=== PATIENT | female | born 1950 | race Caucasian/White ===

== ENCOUNTER 2022-10-08 12:09 | Outpatient (CLI) | payer MEDICARE, SELFPAY ==
--- NOTE | ~2022-10-08 | XR_ITS ---
Clinical Indication: Symptoms involving the circulatory and respiratory system PA and lateral views of the chest: Comparison: 11/12/2017 Findings: Minimal bilateral pleural effusions are noted. Cardiomediastinal silhouette is within norm al limits. Bones and soft tissues are unremarkable. Impression: Minimal bilateral pleural effusions. Reviewed, dictated and finalized at location . Impression: Minimal bilateral pleural effusions.
== END 2022-10-08 12:10 | disposition home or self-care (01) ==
PROVIDERS: PCP Family Medicine; Visit Provider Nurse Practitioner Family
DX: J90 Pleural effusion, not elsewhere classified (principal)
CPT/HCPCS: 71046

== ENCOUNTER 2022-10-28 09:22 | Outpatient (CLI) | payer MEDICARE, SELFPAY ==
--- NOTE | ~2022-10-28 | CT_ITS ---
CT Scan of the Chest without Contrast: Clinical Indication: Abnormal chest x-ray Technique: Contiguous sections were acquired throughout the chest without intravenous contrast. Dose reduction technique was used on this scan by utilizing automated exposure control and iterative recon struction technique. The dose-length product (DLP) was 630.21 mGy-cm. Findings: There is no evidence of any significant mediastinal, hilar or axillary lymphadenopathy. There are mil d coronary artery calcifications. No pericardial effusion. Minimal right pleural effusion present. No left pleural effusion. There is linear bibasilar scarring, right worse than left. No suspicious pulmonary nodule. Images through the upper abdomen reveal no abnormalities. Impression: Minimal right pleural effusion. Linear bibasilar scarring, right worse than left. Reviewed, dictated and finalized at [facility]. Impression: Minimal right pleural effusion. Linear bibasilar scarring, right worse than left.
== END 2022-10-28 09:23 ==
LOC: GOSHIMG 09:23
PROVIDERS: PCP Nurse Practitioner Family
DX: J96.01 Acute respiratory failure with hypoxia (principal); J90 Pleural effusion, not elsewhere classified; J98.4 Other disorders of lung
CPT/HCPCS: 71250

== ENCOUNTER 2023-03-09 10:02 | Inpatient (IN) | payer MEDICARE, SELFPAY ==
[2023-03-09] VITALS (29 sets, daily range): BP systolic 138–176; BP diastolic 78–156; PULSE 94–126; RESP 14–31; TEMP 36.4–38.2; O2SAT 88–100; BMI 34.9
--- NOTE | ~2023-03-09 | MR_ITS ---
MRI of the brain Clinical History: Altered mental status, history of meningioma Technique: Axial and sagittal T1-weighted images were acquired. These were followed by axial T2-weigh lilibeth, diffusion weighted, gradient, and FLAIR images. Following intravenous administration of 18 cc Mu ltiHance gadolinium, T1-weighted fat-sat imaging was performed in the axial, coronal, and sagittal pl anes. COMPARISON: 11/12/2017 Findings: There is no acute infarct or intracranial hemorrhage. There is a probable 4 mm enhancing me ningioma in the anteroinferior left renal fossa. No other abnormal 2 possible adjacent tiny meningiom as near the vertex (sagittal postcontrast image 15). No other mass lesion identified. There is mild to moderate chronic microvascular ischemic change in the periventricular white matter. There is probably post operative hyperintense FLAIR signal in the right temporoparietal region with o verlying craniotomy change. Ventricles and subarachnoid spaces are otherwise unremarkable. Orbits are unremarkable. Paranasal sin uses and mastoid air cells are clear. Major intracranial flow voids appear intact. Sagittal midline structures are intact. No other abnormal postcontrast enhancement identified. IMPRESSION: Probable subcentimeter meningiomas, as detailed above. Postoperative change at the right temporoparietal region. Mild to moderate chronic microvascular ischemic changes. Reviewed, dictated and finalized at location .
--- NOTE | ~2023-03-09 | CT_ITS ---
EXAMINATION: CT brain wo con DATE: 03/09/2023 11:56 INDICATION: Altered mental status TECHNIQUE: Computed tomography (CT) of the head was performed without intravenous contrast. Sagittal and coronal reconstructions were performed. The mA was adjusted according to patient size. Iterative reconstruction technique was employed. The dose-length product was 605.33 mGy-cm. COMPARISON: head CT dated 07/14/2017 FINDINGS: Again seen is a small region of chronic encephalomalacia the right frontoparietal region with stable appearance of an overlying craniotomy. There is mild scattered white matter hypoattenuation consisten t with chronic small vessel ischemic disease. No acute intracranial hemorrhage, acute infarction or abnormal extra axial fluid collection. Symmetric prominence of the sulci consistent with mild age-blair ropriate diffuse cerebral volume loss. Ventricles are normal and symmetric. Unchanged prominent left choroid fissure cyst. No mass/mass effect. Changes of bilateral intraocular lens replacement. The orb its, paranasal sinuses and mastoid air cells are normal. IMPRESSION: 1. No acute intracranial process. 2. Small region of chronic encephalomalacia in the right frontoparietal region with overlying craniot leo. 3. Age-related changes including mild diffuse volume loss and mild scattered white matter hypoattenua tion consistent with chronic small vessel ischemic disease. Reviewed, dictated and finalized at location A. IMPRESSION: 1. No acute intracranial process. 2. Small region of chronic encephalomalacia in the right frontoparietal region with overlying craniotomy. 3. Age-related changes including mild diffuse volume loss and mild scattered wh ite matter hypoattenuation consistent with chronic small vessel ischemic diseas e.
--- NOTE | ~2023-03-09 | XR_ITS ---
Portable chest x-ray Comparison: 10/08/2022 Clinical History: Fever Findings: Lungs are clear, without focal consolidation or pleural effusion. Cardiomediastinal silho uette is stable. Bones and soft tissues are unremarkable. Impression: Normal chest. Reviewed, dictated and finalized at [facility]. Impression: Normal chest.
--- NOTE | ~2023-03-09 | CT_ITS ---
EXAMINATION: CT abdomen pelvis w con DATE: 03/09/2023 12:46 INDICATION: Urinary frequency. Altered mental status. TECHNIQUE: Computed tomography (CT) of the abdomen and pelvis was performed with 100 mL Omnipaque-350 intravenous contrast. Automated exposure control and iterative reconstruction technique were employe d. The dose-length product was 1153.39 mGy-cm. COMPARISON: None FINDINGS: Mild atelectasis at the bilateral lung bases. Heart size is normal. Atherosclerotic coronary artery c alcific location. Dense mitral annular calcification. No pericardial or pleural effusion. Patulous di stal esophagus. Liver, gallbladder, spleen, pancreas, bilateral adrenal glands and kidneys are normal . Bladder is normal. The uterus is not identified and has likely been surgically resected. Bowels are unremarkable with no wall thickening or obstruction. The appendix is not visualized. No pericecal in flammatory change to suggest acute appendicitis. Tiny fat-containing umbilical hernia and small fat-c ontaining infraumbilical ventral hernia. No free intraperitoneal gas or fluid. No pathologically enla rged abdominal or pelvic lymphadenopathy. Mild lumbar spondylosis with severe facet osteoarthritis bi laterally at L5-S1. IMPRESSION: 1. No acute intra-abdominal/pelvic process. 2. Fat-containing small infraumbilical and tiny umbilical hernias. 3. Patulous distal esophagus likely related to esophageal dysmotility as described on a couple prior esophagram studies. Reviewed, dictated and finalized at location A. IMPRESSION: 1. No acute intra-abdominal/pelvic process. 2. Fat-containing small infraumbilical and tiny umbilical hernias. 3. Patulous distal esophagus likely related to esophageal dysmotility as descri bed on a couple prior esophagram studies.
--- NOTE | 2023-03-09 10:10 | ECG_ITS ---
Measurements Intervals [place] Rate: 118 P: 53 VT: 140 QRS: -8 QRSD: 126 T: 21 QT: 322 QTc: 452 Interpretive Statements SINUS TACHYCARDIA RIGHT BUNDLE BRANCH BLOCK CONSIDER INFERIOR INFARCT, AGE INDETERMINATE BASELINE ARTIFACT- I, II, III, AVR, AVL, AVF ABNORMAL ECG COMPARED TO ECG 01/16/2019 14:46:38 SINUS TACHYCARDIA NOW PRESENT Electronically Signed On 03-09-2023 11:12:53 CDT by Chuy Witt D.O.
[2023-03-09 10:55] LABS: Basophils Absolute Auto 0.1 K/mm3 (0.0-0.1); Basophils Percent Auto 1.1 % (0.2-1.2); Eosinophils Percent Auto 0.6 % (0-4.4); Hematocrit 27.8 % (37.0-47.0); Hemoglobin 9.5 g/dL (12.0-15.0); Immature Granulocyte Absolute 0.03 K/mm3 (0.00-0.031); Immature Granulocyte Percent A 0.5 % (0-0.5); Lymphocytes Absolute Auto 0.99 K/mm3 (0.9-3.2); Lymphocytes Percent Auto 15.8 % (18.3-44.2); Mean Corpuscular HGB Conc 34.2 g/dl (32-36); Mean Corpuscular Hemoglobin 29.9 pg (26-34); Mean Corpuscular Volume 87.4 fl (80-100); Mean Platelet Volume 8.3 fl (7.4-10.4); Monocytes Absolute Auto 0.5 K/mm3 (0.1-0.6); Monocytes Percent Auto 7.5 % (2.6-8.5); Neutrophils Absolute Auto 4.7 K/mm3 (1.3-6.7); Neutrophils Percent Auto 74.5 % (45.5-73.1); Platelet Count Result 323 k/mm3 (150-375); Red Blood Count 3.18 M/mm3 (4.2-5.4); Red Cell Distribution Width 13.1 % (11.5-14.5); White Blood Count 6.3 K/mm3 (4.5-10.0)
[2023-03-09 11:02] LABS: Appearance Urine Clear (Clear); Bacteria Urine None Seen /hpf; Bilirubin Urine Negative (Negative); Color Urine Yellow (Yellow); Glucose Urine UA Negative (Negative); Ketones Urine Trace mg/dL (Negative); Leukocyte Esterase Ur Negative LEU/UL (Negative); Nitrate Urine Negative (Negative); Protein Urine 1+ mg/dL (Negative); Specific Grav Ur 1.018 (1.001-1.035); Squamous Epithelial Cell Urine None seen /hpf (Few); Urobilinogen Urine 0.2 mg/dL (<2.0); WBC Urine 0-5 /hpf; pH Urine 7.5 (5.0-9.0)
--- NOTE | 2023-03-09 11:06 | ED.AMS ---
HPI - Altered Mental Status General Chief Complaint: Altered Mental Status Stated Complaint: AMS Time Seen by Provider: 03/09/23 10:14 History of Present Illness HPI narrative: This is a 72-year-old female, with past history of hypertension, hypothyroidism and history of pneumonia earlier this year, who is brought to the emergency department by family for progressive confusion. The patient's daughter, who is at bedside notes over the past 2 weeks the patient has become progressively more confused, forgetting her medications, events as recently as eating and her current location. She also states the patient has been coughing, with production of yellow to green sputum without blood. The patient complains of a throbbing headache, rated 5/10 but has no other acute complaints. Related Data Home Medications Medication Instructions Recorded Confirmed albuterol sulfate 90 mcg/actuation 2 inh inhalation PRN PRN Shortness 03/09/23 03/09/23 aerosol inhaler Of Breath Or Wheezing atorvastatin 20 mg tablet 20 mg PO DAILY 03/09/23 03/09/23 benztropine 0.5 mg tablet 0.5 mg PO DAILY 03/09/23 03/09/23 carvedilol 6.25 mg tablet 6.25 mg PO Q12H 03/09/23 03/09/23 clonazepam 0.5 mg tablet 0.5 mg PO Q12H 03/09/23 03/09/23 hydrochlorothiazide 12.5 mg tablet 12.5 mg PO DAILY 03/09/23 03/09/23 levetiracetam 500 mg tablet 1,000 mg PO Q12H 03/09/23 03/09/23 levothyroxine 25 mcg tablet 25 mcg PO DAILY 03/09/23 03/09/23 lisinopril 20 mg tablet 20 mg PO DAILY 03/09/23 03/09/23 montelukast 10 mg tablet 10 mg PO HS 03/09/23 03/09/23 pregabalin 100 mg capsule 100 mg PO Q8H 03/09/23 03/09/23 risperidone 1 mg tablet 1 mg PO HS 03/09/23 03/09/23 sertraline 25 mg tablet 25 mg PO DAILY 03/09/23 03/09/23 sumatriptan succinate 100 mg tablet 100 mg PO DAILY PRN migrane 03/09/23 03/09/23 trazodone 50 mg tablet 50 mg PO HS 03/09/23 03/09/23 Allergies Allergy/AdvReac Type Severity Reaction Status Date / Time NSAIDS (Non-Steroidal Allergy Intermediate Dyspnea / Verified 03/09/23 16:12 Anti-Inflamma SOB amoxicillin Allergy Unknown Unknown Verified 03/09/23 16:12 ibuprofen Allergy Unknown Unknown Verified 03/09/23 16:12 meperidine Allergy Unknown Unknown Verified 03/09/23 16:12 Penicillins Allergy Unknown Unknown Verified 03/09/23 16:12 Sulfa (Sulfonamide Allergy Unknown Itching Verified 03/09/23 16:12 Antibiotics) MEPERIDINE HCL AdvReac Severe hypotension Uncoded 03/09/23 16:12 Review of Systems Review of Systems: CONSTITUTIONAL: Denies fever, chills, or sweats. CARDIOVASCULAR: Denies chest pain, palpitations, or edema. RESPIRATORY: Denies cough or dyspnea. GASTROINTESTINAL: Denies abdominal pain, nausea, vomiting, or diarrhea. GENITOURINARY: Denies dysuria or hematuria. SKIN: Denies rash or itching. MUSCULOSKELETAL: Denies back pain, joint pain, or myalgia. NEUROLOGIC: Throbbing headache denies numbness, dizziness, or weakness. PSYCHIATRIC: Denies anxiety or depression. [facility] Past Medical History Medical History (Updated 03/09/23 @ 18:16 by Daisy Woods PA-C) Asthma Benign meningioma Status post resection and gamma knife. Bipolar disorder Coronary artery disease Poorly documented but reported history of cardiac catheterization with stents. Depression with anxiety Focal seizures Gastroesophageal reflux disease Hyperlipidemia Hypertension Hypothyroidism Kidney stones Migraine headache Mitral valve prolapse Surgical History Surgical History (Updated 03/09/23 @ 18:12 by Daisy Woods PA-C) History of cardiac catheterization History of hysterectomy History of mandibular surgery TMJ surgery. History of resection of meningioma History of surgical removal of ganglion cyst Status post thoracostomy tube placement Family History Family History Sibling Patient's sister is in good health Hypertension Mother Family history of Alzheimer's disease, Onset Age: 87 Hypertension
[2023-03-09 11:08] LABS: Add Urine Microscopic? YES
[2023-03-09 11:10] LABS: Alanine Aminotransferase 18 U/L (6-35); Albumin Level 3.6 g/dL (3.5-5.1); Alkaline Phosphatase 93 U/L (38-126); Anion Gap 8 mmol/L (8-16); Aspartate Amino Transferase 25 U/L (14-36); Bilirubin,Total 0.5 mg/dL (0.2-1.3); Blood Urea Nitrogen 13 mg/dL (7-17); CRP 0.7 mg/dL (<1.0); Calcium 9.4 mg/dL (8.4-10.2); Carbon Dioxide 22 mmol/L (22-30); Chloride 96 mmol/L (98-107); Estimated CRCL calculation 70 ml/min; Estimated Glomerular Filt Rate > 60; Glucose 139 mg/dL (65-110); Sodium 126 mmol/L (137-145)
[2023-03-09 11:20] LABS: Prothrombin Time 13.3 Seconds (11.1-14.7)
[2023-03-09 11:21] LABS: Partial Thromboplastin Time 26.9 SECONDS (22.3-36.8)
[2023-03-09] MEDS: AZITHROMYCIN 500 MG/NS 250 ML 500 MG/250 ML BAG 250 MG IVPB (12:04)
[2023-03-09] MEDS: SODIUM CHLORIDE 0.9% IV 1,000 ML 999 ML IV CONT (12:04)
[2023-03-09 12:27] LABS: Acetaminophen < 10 ug/mL (10-30); Ethanol < 10 mg/dL (<10); Salicylate < 1.0 mg/dL (2-20)
[2023-03-09 12:41] LABS: Influenza A QL RT-PCR Negative (Negative); Influenza B QL RT-PCR Negative (Negative); SARS-CoV-2 RNA PCR Negative (Negative)
[2023-03-09] MEDS: SODIUM CHLORIDE 0.9% IV 1,000 ML 125 ML IV CONT ×2 (13:55→21:53)
--- NOTE | 2023-03-09 16:10 | ADMGEN ---
This patient, Lisa Vicente, was admitted to [facility] Surg Room 307-01. Patient/family oriented to hospital policies and general routines including ID bracelet, bed and alarms, visiting hours, pain management, procedures, bathroom and other care routines, personal items, smoking policy, room service/diet, and visiting hours. Information on how to activate the Rapid Response Team has been discussed. Patient/Family are encouraged to report perceived risks to care and to ask questions if they do not understand what they are told or what they should do.
[2023-03-09] MEDS: ACETAMINOPHEN 325 MG TABLET 650 MG PO (17:37)
--- NOTE | 2023-03-09 18:03 | PM.IMHP ---
H&P: HPI History of Present Illness Date/Time: 03/09/23 17:00 Chief Complaint: Altered mental status. Narrative: This is a 9-year-old female smoker with history of migraines, focal seizures, multiple benign meningioma status post resection and gamma knife, hypertension, hyperlipidemia, hypothyroidism, depression, anxiety, bipolar disorder, and lengthy hospitalization in July 2022 for severe sepsis and empyema status post thoracotomy who presented to the emergency department via private vehicle accompanied by her family for evaluation of altered mental status. She is not able to provide an accurate history and thus a majority the following is obtained via a review of her EMR as well information provided by her daughter. Since her hospitalization in July it sounds as though her cognition has declined. The last several weeks however family members have noticed that she is become increasingly confused. At times she forgets to take her medications though daughter reports that sometime she takes the round medicines at the wrong times as well. She has also been skipping showers and missing meals. Daughter is worried that she is developing dementia as the patient's mother showed similar symptoms before her diagnosis. She does not think that she has made any medication errors. She denies recent fall, trauma, and head injury. She denies alcohol and illicit substance use. She has a mild cough which is really productive of yellow to green sputum but that is not necessarily new to her. She endorses hot flashes but denies fever, chills, and sweats. She denies sinus congestion, sore throat, chest pain, pleuritic pain, sensations of racing heart (although her heart rate has been consistently in the 110s to 120s), shortness of breath, abdominal pain, nausea, vomiting, diarrhea, dysuria, focal weakness, paresthesias, facial droop, and difficulties with speaking and swallowing (she has a history of dysphagia and patulous esophagus but tells me ?that is all cleared up?). In the ED: Temperature was 100.7? F on arrival. Blood pressures have been persistently in the 150s to 170s systolic. She remains in a sinus tachycardia. Labs were significant for a WBC count of 6.3, hemoglobin 9.5, sodium 126, potassium 4.0, chloride 96, lactic acid 1.0, CRP 0.7. Urine was positive for 1+ protein, trace ketones, and 3 to 5 RBC. Ethyl alcohol, acetaminophen, and salicylates were undetectable. She tested negative for influenza and COVID. Brain CT showed no acute intracranial process. Chest x-ray was normal. CT of the abdomen and pelvis showed no acute intra-abdominal or pelvic process. She is being admitted in this setting for further evaluation of altered mental status. Review of Systems Review of Systems: Unable to be obtained accurately given her confusion. [facility] Past Medical History Medical History Asthma Benign meningioma Status post resection and gamma knife. Bipolar disorder Coronary artery disease Poorly documented but reported history of cardiac catheterization with stents. Depression with anxiety Empyema (07/2022) Hospitalized at [facility]. Focal seizures Gastroesophageal reflux disease Hyperlipidemia Hypertension Hypothyroidism Kidney stones Migraine headache Mitral valve prolapse Surgical History Surgical History History of cardiac catheterization History of hysterectomy History of mandibular surgery TMJ surgery. History of resection of meningioma History of surgical removal of ganglion cyst History of thoracotomy Status post thoracostomy tube placement Family History Family History Sibling Patient's sister is in good health Hypertension Mother Family history of Alzheimer's disease, Onset Age: 87 Hypertension Father Cancer Social History Social History (Revie
[2023-03-09 18:35] LABS: Alveolar/Arterial O2 Gradient 28.4 mmHg; Base Excess ABG -2.6 mEq/l (+/-2.0); Carboxyhemoglobin 0.1 % THb (0-2.0); Fractional Inspired Oxygen 21 %; HCO3 ABG 20.7 mEq/l (22.0-26.0); Methemoglobin ABG 0.5 %THb (0-1.5); Oxygen Content ABG 13.6 %vol (16.0-22.0); Oxygen Saturation ABG 96.9 % (95.0-100.0); Oxyhemoglobin 94.7 % THb (90.0-100.0); PCO2 ABG 30.7 mmHg (35.0-45.0); PO2 ABG 84.6 mmHg (80.0-100.0); PO2 FiO2 Ratio Arterial Blood 4.03 %; Reduced Hemoglobin 4.7 %THb (0-5.0); Total Hemoglobin 10.1 g/dL (12.0-18.0); pH ABG 7.447 (7.350-7.450)
[2023-03-09 18:36] LABS: Device ROOM AIR; Modified Allen's Test Pass; Site Drawn RIGHT RADIAL
[2023-03-09 19:07] LABS: Creatinine Urine 18.7 mg/dL; Urea Random Urine 171 MG/DL
[2023-03-09 19:16] LABS: Sodium Urine Random 127 meq/L
[2023-03-09 19:30] LABS: Ammonia < 9 umol/L (9-30)
[2023-03-09 19:33] LABS: Anion Gap 8 mmol/L (8-16); Blood Urea Nitrogen 9 mg/dL (7-17); Calcium 8.5 mg/dL (8.4-10.2); Carbon Dioxide 22 mmol/L (22-30); Chloride 99 mmol/L (98-107); Estimated CRCL calculation 82 ml/min; Estimated Glomerular Filt Rate > 60; Glucose 104 mg/dL (65-110); Potassium 3.7 mmol/L (3.4-5.0); Sodium 129 mmol/L (137-145)
[2023-03-09 19:40] LABS: D Dimer 0.64 ug/mL (<0.48)
[2023-03-09 19:51] LABS: Iron 86 ug/dL (37-170)
[2023-03-09 20:12] LABS: Percent Iron Saturation 26 % (20-50)
[2023-03-09 20:13] LABS: Thyroid Stimulating Hormone Reflex 0.407 uIU/mL (0.465-4.68)
[2023-03-09 20:39] LABS: Folic Acid 18.8 ng/mL (2.76->20)
[2023-03-09 21:01] LABS: Free T4 Free Thyroxine Reflex 2.27 ng/dL (0.78-2.19)
[2023-03-09] MEDS: carvediloL 6.25 MG TABLET PO (21:52)
[2023-03-09] MEDS: MONTELUKAST SODIUM 10 MG TABLET PO (21:53)
[2023-03-09] MEDS: levETIRAcetam 500 MG TABLET 1000 MG PO (21:53)
[2023-03-10] VITALS (13 sets, daily range): BP systolic 131–161; BP diastolic 63–88; PULSE 86–96; RESP 18–20; TEMP 36.2–36.7; O2SAT 97–100
[2023-03-10] MEDS: ACETAMINOPHEN 325 MG TABLET 650 MG PO ×2 (00:56→10:06)
[2023-03-10] MEDS: SODIUM CHLORIDE 0.9% IV 1,000 ML 125 ML IV CONT (05:25)
[2023-03-10 06:06] LABS: Amphetamine Screen Urine Negative (Negative); Barbiturate Screen Urine Negative (Negative); Benzodiazepines Screen Urine Negative (Negative); Cannabinoid Screen Urine Positive (Negative); Cocaine Screen Urine Negative (Negative); Methadone Screen Urine Negative (Negative); Opiate Screen Urine Negative (Negative); Phencyclidine Screen Urine Negative (Negative)
[2023-03-10 06:35] LABS: Hematocrit 26.2 % (37.0-47.0); Hemoglobin 8.6 g/dL (12.0-15.0); Immature Granulocyte Absolute 0.01 K/mm3 (0.00-0.031); Immature Granulocyte Percent A 0.3 % (0-0.5); Lymphocytes Absolute Auto 1.05 K/mm3 (0.9-3.2); Lymphocytes Percent Auto 26.9 % (18.3-44.2); Mean Corpuscular HGB Conc 32.8 g/dl (32-36); Mean Corpuscular Volume 91.3 fl (80-100); Mean Platelet Volume 8.2 fl (7.4-10.4); Monocytes Absolute Auto 0.5 K/mm3 (0.1-0.6); Monocytes Percent Auto 11.8 % (2.6-8.5); Neutrophils Absolute Auto 2.3 K/mm3 (1.3-6.7); Platelet Count Result 285 k/mm3 (150-375); Red Blood Count 2.87 M/mm3 (4.2-5.4); Red Cell Distribution Width 13.7 % (11.5-14.5); White Blood Count 3.9 K/mm3 (4.5-10.0)
[2023-03-10 06:46] LABS: Alanine Aminotransferase 17 U/L (6-35); Albumin Level 3.2 g/dL (3.5-5.1); Alkaline Phosphatase 77 U/L (38-126); Anion Gap 5 mmol/L (8-16); Aspartate Amino Transferase 23 U/L (14-36); Bilirubin,Total 0.4 mg/dL (0.2-1.3); Blood Urea Nitrogen 7 mg/dL (7-17); Calcium 8.1 mg/dL (8.4-10.2); Carbon Dioxide 24 mmol/L (22-30); Chloride 99 mmol/L (98-107); Estimated CRCL calculation 88 ml/min; Estimated Glomerular Filt Rate > 60; Glucose 98 mg/dL (65-110); Magnesium 1.5 mg/dL (1.6-2.3); Sodium 128 mmol/L (137-145)
[2023-03-10] MEDS: levETIRAcetam 500 MG TABLET 1000 MG PO ×2 (09:46→21:02)
[2023-03-10] MEDS: carvediloL 6.25 MG TABLET PO ×2 (09:46→21:01)
[2023-03-10] MEDS: lisinopriL 20 MG TABLET PO (09:46)
[2023-03-10] MEDS: MAGNESIUM SULF 1 GM/D5W 100 ML 1 GM/100 ML BAG IVPB (09:46)
[2023-03-10] MEDS: SODIUM CHLORIDE 1 GM TABLET PO (09:46)
[2023-03-10] MEDS: ATORVASTATIN 20 MG TABLET PO (09:46)
--- NOTE | 2023-03-10 11:15 | PM.IMPN ---
Progress Note: A&P Assessment and Plan (1) Altered mental status: Qualifiers: Altered mental status type: unspecified Qualified Code(s): R41.82 - Altered mental status, unspecified Code(s): R41.82 - Altered mental status, unspecified Status: Acute (2) Systemic inflammatory response syndrome: Code(s): R65.10 - Systemic inflammatory response syndrome (SIRS) of non-infectious origin without acute organ dysfunction Status: Acute (3) Focal seizures: Code(s): R56.9 - Unspecified convulsions Status: Acute (4) Hyponatremia: Code(s): E87.1 - Hypo-osmolality and hyponatremia Status: Acute (5) Depression with anxiety: Code(s): F41.8 - Other specified anxiety disorders Status: Acute (6) Hypertension: Code(s): I10 - Essential (primary) hypertension Status: Acute (7) Hypothyroidism: Code(s): E03.9 - Hypothyroidism, unspecified Status: Acute (8) Anemia: Code(s): D64.9 - Anemia, unspecified Status: Acute Plan The patient presented to the emergency department accompanied by her daughter for evaluation of altered mental status as detailed in HPI. Labs, imaging, EKG, and all reports were personally reviewed. Ammonia, salicylates, acetaminophen, and ethyl alcohol levels were undetectable. She did have a low-grade temperature on arrival however her WBC count is normal as is her CRP. ABG is also unremarkable. Chest x-ray, CT of the abdomen and pelvis, and urinalysis did not show any evidence to suggest underlying infection. CVA is a consideration however brain CT did not show any acute findings. She did have low sodium on the labs. Will start on salt tablets. hydrochlorothiazide is on hold. Blood cultures have been obtained to rule out bacteremia. Hold benztropine, clonazepam, trazodone, triptan, pregabalin, risperidone, and sertraline for now. Her symptoms are likely secondary to polypharmacy Subjective Date/time seen: 03/10/23 11:15 Interval history: Mental status appears to be at baseline. No other complaints Review of Systems Review of Systems: Twelve systems were reviewed and are negative except for as per HPI. Exam Narrative: General: Moderately ill-appearing female sitting up in bed. Weight: 81 kg. BMI: 34.9. HEENT: Normocephalic, atraumatic. Wearing corrective lenses. PERRL, EOMI. Sclera anicteric. Tacky mucous membranes. Oropharynx is crowded and poorly visualized. Neck: Supple. No nuchal rigidity. No lymphadenopathy. No obvious carotid bruits or thyromegaly. Respiratory: Respirations are nonlabored and lungs are clear to auscultation bilaterally. Cardiovascular: Tachycardic with normal S1-S2. Monitor shows sinus tachycardia. Gastrointestinal: Abdomen is soft, nontender, and nondistended with positive bowel sounds. Skin: Warm and dry. Total angiectasias over the cheeks. Pinpoint petechiae over the chest. There is an old healing bruise just under the sternal notch. Scattered bruising throughout the upper extremities. Extremities: No cyanosis, clubbing, or edema. Radial and pedal pulses intact. Neurological: Alert to name, age, date of , and year. She cannot recall the name of the president. She knew that she was in a hospital. She could not provide me much information regarding why she was brought here today. Cranial nerves 2-12 are grossly intact. Speech is clear but she is slow to process and answer questions. She speaks in 5 word sentences or less. No facial asymmetry. Tongue protrudes midline. Hand hospice team lead and foot pushes are equal bilaterally. No pronator drift. Normal [id number] and rapid alternating movements. Normal patellar reflexes. Negative Babinski. Psychiatric: Pleasant and cooperative. Confused. Objective Data Vital Signs Vital Signs: Vital Signs - 24 hr 03/09/23 11:32 03/09/23 11:34 03/09/23 12:19 Temperature Pulse Rate Respiratory Rate Blood Pressure 162/82 H P
--- NOTE | 2023-03-10 15:11 | WPDNEURCNPN ---
Assessment and Plan Assessment and plan (1) Vascular dementia: Qualifiers: Dementia severity: mild Dementia behavioral or psychological symptom: with anxiety Qualified Code(s): F01.A4 - Vascular dementia, mild, with anxiety Code(s): F01.50 - Vascular dementia, unspecified severity, without behavioral disturbance, psychotic disturbance, mood disturbance, and anxiety Status: Acute (2) Focal seizures: Code(s): R56.9 - Unspecified convulsions Status: Acute Plan 1. Dementia with increasing confusion question related to the acute process or simply progressive chronic process. 2. Documented abnormal MRI in the past as well that is on May 31, 2014 consistent with encephalomalacia involving the frontal lobes and left parietal lobe. Three recent lap consistent with anemia and hyponatremia 3 family is concerned about the changes in the mental status attributed to the progressive dementia we can obtain the EEG, Keppra level, and if necessary MRI of the brain her status is stable otherwise Consult date: 03/10/23 HPI: Lisa Vicente is a 72 year old female Admitted to the hospital through the emergency room for the complaints of change in the mental status she was brought to the ER by family for progressive confusion over the last 2 weeks. For getting the medications current locations though a additionally she has been coughing with production of yellow and green sputum and without blood. Patient does have history of hypertension, hypothyroidism, pneumonia earlier this year, and her medications include atorvastatin 20 mg daily carvedilol 6.25 mg q.12 hours clonazepam 0.5 mg q.12 hydrochlorothiazide 12.5 mg daily levetiracetam 500 mg 2 of them every 12 hours levothyroxine 25 micro g daily lisinopril 20 mg daily pregabalin 100 mg capsule every 8 hours spelled on 1 mg at night sertraline 25 mg daily and sumatriptan on p.r.n. basis in addition to trazodone 50 mg at night. She has been documented to have multiple allergies. She does have ongoing history of coronary artery disease anxiety with depression . On initial evaluation in the emergency room her exam was grossly nonfocal, vital signs were normal except blood pressure 157/82, routine lab was normal, training for the influenza and stars were negative, EKG was without atrial fibrillation, and head scan documented small region of chronic encephalomalacia in the right frontoparietal region with overlying craniotomy noted on previous scans as well. Review of Systems Review of Systems: All systems reviewed & are unremarkable except as noted in HPI and below PMFSH Past Medical History Medical History (Updated 03/10/23 @ 15:21 by Dewayne Garnica MD) Asthma Benign meningioma Status post resection and gamma knife. Bipolar disorder Coronary artery disease Poorly documented but reported history of cardiac catheterization with stents. Depression with anxiety Empyema (07/2022) Hospitalized at [facility]. Focal seizures Gastroesophageal reflux disease Hyperlipidemia Hypertension Hypothyroidism Kidney stones Migraine headache Mitral valve prolapse Surgical History Surgical History (Updated 03/09/23 @ 23:02 by Daisy Woods PA-C) History of cardiac catheterization History of hysterectomy History of mandibular surgery TMJ surgery. History of resection of meningioma History of surgical removal of ganglion cyst History of thoracotomy Status post thoracostomy tube placement Family History Family History Sibling Patient's sister is in good health Hypertension Mother Family history of Alzheimer's disease, Onset Age: 87 Hypertension Father Cancer Social History Social History (Updated 03/09/23 @ 18:12 by Daisy Woods PA-C) Social History: Surrogate medical decision maker: Majo Win, daughter. Code status: Full code. Smoking status: Heavy tobacco smoker Smoking en
[2023-03-10] MEDS: ONDANSETRON INJ 4 MG/2 ML VIAL IV PUSH (16:27)
[2023-03-10] MEDS: MONTELUKAST SODIUM 10 MG TABLET PO (21:01)
[2023-03-11] VITALS (11 sets, daily range): BP systolic 130–152; BP diastolic 60–82; PULSE 78–95; RESP 14–20; TEMP 36–37.1; O2SAT 98–99
[2023-03-11 07:47] LABS: Anion Gap 5 mmol/L (8-16); Blood Urea Nitrogen 5 mg/dL (7-17); Calcium 8.2 mg/dL (8.4-10.2); Carbon Dioxide 22 mmol/L (22-30); Chloride 93 mmol/L (98-107); Estimated CRCL calculation 89 ml/min; Estimated Glomerular Filt Rate > 60; Glucose 106 mg/dL (65-110); Potassium 3.7 mmol/L (3.4-5.0); Sodium 120 mmol/L (137-145)
[2023-03-11] MEDS: SODIUM CHLORIDE 0.9% IV 1,000 ML 100 ML IV CONT (08:02)
[2023-03-11] MEDS: lisinopriL 20 MG TABLET PO (08:42)
[2023-03-11] MEDS: carvediloL 6.25 MG TABLET PO ×2 (08:42→20:59)
[2023-03-11] MEDS: levETIRAcetam 500 MG TABLET 1000 MG PO ×2 (08:46→20:59)
[2023-03-11] MEDS: ATORVASTATIN 20 MG TABLET PO (08:46)
[2023-03-11] MEDS: SODIUM CHLORIDE 1 GM TABLET PO ×3 (08:47→17:08)
--- NOTE | 2023-03-11 08:57 | WPDNEUROLOGY ---
Neurology EEG Report General Information Date of Study: 03/11/23 TEST EEG DIAGNOSIS altered mental status CONDITION OF RECORDING awake and drowsy and sleep EEG NUMBER [id number] CLINICAL HISTORY altered mental status EEG DESCRIPTION basic resting occipital frequency consists of low to medium voltage 9 to 11 hertz per 2nd alpha with good anteroposterior gradient. Low-voltage beta activity seen diffusely admixed with waxing and waning posterior alpha rhythm Marley all ringing to buy lateral interval beta and theta activity during sleep and also bilateral symmetrical sleep spindles. Hyperventilation not done. Photic stimulation not done. Non paroxysmal. Nonfocal. Nonlateralizing. IMPRESSION Normal record
--- NOTE | 2023-03-11 10:00 | PM.IMPN ---
Progress Note: A&P Assessment and Plan (1) Altered mental status: Qualifiers: Altered mental status type: unspecified Qualified Code(s): R41.82 - Altered mental status, unspecified Code(s): R41.82 - Altered mental status, unspecified Status: Acute (2) Systemic inflammatory response syndrome: Code(s): R65.10 - Systemic inflammatory response syndrome (SIRS) of non-infectious origin without acute organ dysfunction Status: Acute (3) Focal seizures: Code(s): R56.9 - Unspecified convulsions Status: Acute (4) Hyponatremia: Code(s): E87.1 - Hypo-osmolality and hyponatremia Status: Acute (5) Depression with anxiety: Code(s): F41.8 - Other specified anxiety disorders Status: Acute (6) Hypertension: Code(s): I10 - Essential (primary) hypertension Status: Acute (7) Hypothyroidism: Code(s): E03.9 - Hypothyroidism, unspecified Status: Acute (8) Anemia: Code(s): D64.9 - Anemia, unspecified Status: Acute Plan altered mental status likely secondary to polypharmacy versus hyponatremia. Patient appears to be at baseline at this time. Ammonia, salicylates, acetaminophen, and ethyl alcohol levels were undetectable. She did have a low-grade temperature on arrival however her WBC count is normal as is her CRP. ABG is also unremarkable. Chest x-ray, CT of the abdomen and pelvis, and urinalysis did not show any evidence to suggest underlying infection. CVA is a consideration however brain CT did not show any acute findings. She did have low sodium on the labs. Will start on salt tablets. hydrochlorothiazide is on hold. Blood cultures have been obtained to rule out bacteremia. Hold benztropine, clonazepam, trazodone, triptan, pregabalin, risperidone, and sertraline for now. Her symptoms are likely secondary to polypharmacy. neurology consulted. EEG normal. Hyponatremia worse. Will increase salt tablets to 3 times a day and put on fluid restriction. Monitor BMP Subjective Date/time seen: 03/11/23 10:00 Interval history: appears at baseline Review of Systems Review of Systems: All systems reviewed & are unremarkable except as noted in HPI and below Exam Narrative: General: Moderately ill-appearing female sitting up in bed. HEENT: Normocephalic, atraumatic. Wearing corrective lenses. PERRL, EOMI. Sclera anicteric. Neck: Supple. Respiratory: Respirations are nonlabored and lungs are clear to auscultation bilaterally. Cardiovascular: Tachycardic with normal S1-S2. Monitor shows sinus tachycardia. Gastrointestinal: Abdomen is soft, nontender, and nondistended with positive bowel sounds. Skin: Warm and dry. Extremities: No cyanosis, clubbing, or edema. Radial and pedal pulses intact. Neurological: alert and oriented, Cranial nerves 2-12 are grossly intact. Speech is clear but she is slow to process and answer questions. Psychiatric: cooperative. Objective Data Vital Signs Vital Signs: Vital Signs - 24 hr 03/10/23 13:54 03/10/23 12:00 03/10/23 16:00 Temperature 97.2 F L Pulse Rate 96 89 92 Respiratory Rate 20 Blood Pressure 131/63 Pulse Oximetry 99 03/10/23 21:01 03/10/23 22:00 03/10/23 19:45 Temperature 97.8 F Pulse Rate 93 91 92 Respiratory Rate 20 Blood Pressure 161/85 H Pulse Oximetry 100 03/11/23 00:00 03/11/23 04:00 03/11/23 06:00 Temperature 98.7 F Pulse Rate 95 92 88 Respiratory Rate 20 Blood Pressure 152/82 H Pulse Oximetry 99 03/11/23 08:42 Temperature Pulse Rate 89 Respiratory Rate Blood Pressure Pulse Oximetry Intake/Output Intake/Output: Intake & Output 03/08/23 03/09/23 03/10/23 03/11/23 23:59 23:59 23:59 23:59 Intake Total 3000 / 3000 2854 / 2854 Output Total 300 / 300 1200 / 1200 Balance 2700 / 2700 2854 / 2854 -1200 / -1200 Meds/Results Medications: Active Medications Generic Name Dose Route St
[2023-03-11] MEDS: ACETAMINOPHEN 325 MG TABLET 650 MG PO (10:52)
[2023-03-11] MEDS: SUMAtriptan SUCCINATE 25 MG TABLET 100 MG PO (11:35)
[2023-03-11] MEDS: clonazePAM (*CRX) 0.5 MG TABLET PO ×2 (13:10→21:00)
[2023-03-11] MEDS: PREGABALIN (*CRX) 50 MG CAPSULE 100 MG PO ×2 (13:10→21:00)
[2023-03-11 17:01] LABS: Anion Gap 4 mmol/L (8-16); Blood Urea Nitrogen 7 mg/dL (7-17); Carbon Dioxide 23 mmol/L (22-30); Chloride 92 mmol/L (98-107); Estimated CRCL calculation 89 ml/min; Estimated Glomerular Filt Rate > 60; Glucose 112 mg/dL (65-110); Potassium 3.7 mmol/L (3.4-5.0); Sodium 119 mmol/L (137-145)
[2023-03-11 19:54] LABS: Sodium 122 mmol/L (137-145)
[2023-03-11] MEDS: risperiDONE 1 MG TABLET PO (20:59)
[2023-03-11] MEDS: MONTELUKAST SODIUM 10 MG TABLET PO (20:59)
[2023-03-11] MEDS: traZODone HCL 50 MG TABLET PO (21:00)
[2023-03-11 22:12] LABS: Sodium 123 mmol/L (137-145)
[2023-03-12] VITALS (11 sets, daily range): BP systolic 103–141; BP diastolic 52–58; PULSE 78–103; RESP 14–18; TEMP 36.1–36.2; O2SAT 96–100
[2023-03-12 01:11] LABS: Sodium 125 mmol/L (137-145)
[2023-03-12 04:39] LABS: Anion Gap 3 mmol/L (8-16); Blood Urea Nitrogen 9 mg/dL (7-17); Calcium 8.4 mg/dL (8.4-10.2); Carbon Dioxide 25 mmol/L (22-30); Chloride 98 mmol/L (98-107); Estimated CRCL calculation 75 ml/min; Estimated Glomerular Filt Rate > 60; Glucose 103 mg/dL (65-110); Sodium 126 mmol/L (137-145)
[2023-03-12] MEDS: PREGABALIN (*CRX) 50 MG CAPSULE 100 MG PO ×3 (06:14→21:48)
[2023-03-12 07:37] LABS: Sodium 128 mmol/L (137-145)
[2023-03-12] MEDS: clonazePAM (*CRX) 0.5 MG TABLET PO ×2 (09:17→21:48)
[2023-03-12] MEDS: ATORVASTATIN 20 MG TABLET PO (09:17)
[2023-03-12] MEDS: levETIRAcetam 500 MG TABLET 1000 MG PO ×2 (09:17→21:49)
[2023-03-12] MEDS: BENZTROPINE MESYLATE 0.5 MG TABLET PO (09:17)
[2023-03-12] MEDS: SODIUM CHLORIDE 1 GM TABLET PO ×3 (09:18→17:20)
[2023-03-12] MEDS: SERTRALINE HCL 25 MG TABLET PO (09:22)
[2023-03-12] MEDS: carvediloL 6.25 MG TABLET PO ×2 (09:22→21:48)
[2023-03-12 10:40] LABS: Sodium 129 mmol/L (137-145)
--- NOTE | 2023-03-12 12:13 | PC.NURSE ---
Dr Lebron notified of holding am lisinopril due to decreased bp
--- NOTE | 2023-03-12 13:33 | PCOTNOTE ---
Attempted to see patient at this time. Per RN patient just got back from MRI and is eating lunch.
[2023-03-12 14:56] LABS: Sodium 128 mmol/L (137-145)
[2023-03-12 15:32] LABS: Osmolality, Urine 381 mOsm/kg (50-1200)
--- NOTE | 2023-03-12 16:14 | PM.IMPN ---
Progress Note: A&P Assessment and Plan (1) Altered mental status: Qualifiers: Altered mental status type: unspecified Qualified Code(s): R41.82 - Altered mental status, unspecified Code(s): R41.82 - Altered mental status, unspecified Status: Acute (2) Systemic inflammatory response syndrome: Code(s): R65.10 - Systemic inflammatory response syndrome (SIRS) of non-infectious origin without acute organ dysfunction Status: Acute (3) Focal seizures: Code(s): R56.9 - Unspecified convulsions Status: Acute (4) Hyponatremia: Code(s): E87.1 - Hypo-osmolality and hyponatremia Status: Acute (5) Depression with anxiety: Code(s): F41.8 - Other specified anxiety disorders Status: Acute (6) Hypertension: Code(s): I10 - Essential (primary) hypertension Status: Acute (7) Hypothyroidism: Code(s): E03.9 - Hypothyroidism, unspecified Status: Acute (8) Anemia: Code(s): D64.9 - Anemia, unspecified Status: Acute Plan Altered mental status likely secondary to polypharmacy versus hyponatremia. Ammonia, salicylates, acetaminophen, and ethyl alcohol levels were undetectable. She did have a low-grade temperature on arrival however her WBC count is normal as is her CRP. ABG is also unremarkable. Chest x-ray, CT of the abdomen and pelvis, and urinalysis did not show any evidence to suggest underlying infection. CVA is a consideration however brain CT did not show any acute findings. She did have low sodium on the labs. Started on on salt tablets with slow improvement she was on hydrochlorothiazide at home which is held. Blood cultures have been obtained to rule out bacteremia and remains negative. Initially held benztropine, clonazepam, trazodone, triptan, pregabalin, risperidone, and sertraline for now. Her symptoms are likely secondary to polypharmacy. Neurology consulted. EEG is normal. Her benztropine clonazepam Lyrica risperidone sertraline and trazodone has been restarted. MRI brain with chronic encephalomalacia. Mild to moderate chronic microvascular ischemic change in periventricular white matter. Postoperative changes in right temporoparietal region with overlying craniotomy changes. There is probable subcentimeter meningioma as. No other mass lesions are identified. No acute findings of any intracranial ischemia or bleeding. She most likely have underlying dementia with possible acute on chronic process Keppra level pending Discussed with daughter over the phone Subjective Date/time seen: 03/12/23 16:14 Interval history: Patient feels like she is back to her baseline. She is going for an MRI today. Vital stable labs were reviewed. Hyponatremia has improved and stable. TSH is 0.407 chest x-ray normal. Head CT with no acute intracranial process. Small area of chronic encephalopathy LAC and the right frontoparietal region with overlying craniotomy. Age-related changes including mild diffuse volume loss and mild scattered white matter hypoattenuation consistent with chronic small-vessel ischemic disease. CT abdomen with no acute intra abdominal pelvic process. Fat containing small infraumbilical and tiny umbilical hernias. Patulous distal esophagus likely related to esophageal dysmotility. MRI brain with probable subcentimeter meningiomas no other mass lesion identified. Mild to moderate chronic microvascular ischemic change in periventricular white matter. Probably postoperative hyperintense FLAIR signal in the right temporoparietal region with overlying craniotomy changes. Review of Systems Review of Systems: All systems reviewed & are unremarkable except as noted in HPI and below Exam Narrative: General: Moderately ill-appearing female sitting up in bed. Not in acute distress HEENT: Normocephalic, atraumatic. Wearing corrective lenses. PERRL, EOMI. Sclera anicteric. Neck: Supple. Respiratory: Respirations are nonl
[2023-03-12 16:56] LABS: Sodium 130 mmol/L (137-145)
[2023-03-12] MEDS: MONTELUKAST SODIUM 10 MG TABLET PO (21:48)
[2023-03-12] MEDS: traZODone HCL 50 MG TABLET PO (21:48)
[2023-03-12] MEDS: risperiDONE 1 MG TABLET PO (21:49)
[2023-03-13] VITALS (10 sets, daily range): BP systolic 118–129; BP diastolic 51–65; PULSE 81–109; RESP 18–20; TEMP 35.6–35.9; O2SAT 97–100
[2023-03-13] MEDS: PREGABALIN (*CRX) 50 MG CAPSULE 100 MG PO ×3 (05:48→21:54)
[2023-03-13 07:15] LABS: Basophils Absolute Auto 0.1 K/mm3 (0.0-0.1); Basophils Percent Auto 0.9 % (0.2-1.2); Eosinophils Absolute Auto 0.1 K/mm3 (0-0.3); Eosinophils Percent Auto 1.9 % (0-4.4); Hematocrit 25.8 % (37.0-47.0); Hemoglobin 8.3 g/dL (12.0-15.0); Immature Granulocyte Absolute 0.02 K/mm3 (0.00-0.031); Immature Granulocyte Percent A 0.3 % (0-0.5); Lymphocytes Absolute Auto 1.69 K/mm3 (0.9-3.2); Lymphocytes Percent Auto 26.2 % (18.3-44.2); Mean Corpuscular HGB Conc 32.2 g/dl (32-36); Mean Corpuscular Hemoglobin 30.2 pg (26-34); Mean Corpuscular Volume 93.8 fl (80-100); Mean Platelet Volume 8.7 fl (7.4-10.4); Monocytes Absolute Auto 0.9 K/mm3 (0.1-0.6); Monocytes Percent Auto 13.2 % (2.6-8.5); Neutrophils Absolute Auto 3.7 K/mm3 (1.3-6.7); Neutrophils Percent Auto 57.5 % (45.5-73.1); Platelet Count Result 271 k/mm3 (150-375); Red Blood Count 2.75 M/mm3 (4.2-5.4); Red Cell Distribution Width 14.4 % (11.5-14.5); White Blood Count 6.5 K/mm3 (4.5-10.0)
[2023-03-13 07:47] LABS: Alanine Aminotransferase 14 U/L (6-35); Albumin Level 2.8 g/dL (3.5-5.1); Alkaline Phosphatase 62 U/L (38-126); Anion Gap 2 mmol/L (8-16); Aspartate Amino Transferase 17 U/L (14-36); Bilirubin,Total 0.3 mg/dL (0.2-1.3); Blood Urea Nitrogen 27 mg/dL (7-17); Calcium 8.1 mg/dL (8.4-10.2); Carbon Dioxide 28 mmol/L (22-30); Chloride 102 mmol/L (98-107); Estimated CRCL calculation 65 ml/min; Estimated Glomerular Filt Rate > 60; Glucose 96 mg/dL (65-110); Magnesium 1.9 mg/dL (1.6-2.3); Potassium 3.8 mmol/L (3.4-5.0); Sodium 132 mmol/L (137-145)
[2023-03-13] MEDS: clonazePAM (*CRX) 0.5 MG TABLET PO ×2 (09:07→20:12)
[2023-03-13] MEDS: lisinopriL 20 MG TABLET PO (09:07)
[2023-03-13] MEDS: carvediloL 6.25 MG TABLET PO ×2 (09:07→20:13)
[2023-03-13] MEDS: ATORVASTATIN 20 MG TABLET PO (09:08)
[2023-03-13] MEDS: BENZTROPINE MESYLATE 0.5 MG TABLET PO (09:08)
[2023-03-13] MEDS: SODIUM CHLORIDE 1 GM TABLET PO ×3 (09:08→17:17)
[2023-03-13] MEDS: levETIRAcetam 500 MG TABLET 1000 MG PO ×2 (09:08→20:13)
[2023-03-13] MEDS: SERTRALINE HCL 25 MG TABLET PO (09:08)
[2023-03-13] MEDS: SUMAtriptan SUCCINATE 25 MG TABLET 100 MG PO (09:53)
[2023-03-13 11:26] LABS: Glucose Point of Care 115 mg/dl (65-105)
--- NOTE | 2023-03-13 14:13 | P.PNIM_ITS ---
Progress Note: A&P Assessment and Plan (1) Altered mental status: Qualifiers: Altered mental status type: unspecified Qualified Code(s): R41.82 - Altered mental status, unspecified Code(s): R41.82 - Altered mental status, unspecified Status: Acute (2) Systemic inflammatory response syndrome: Code(s): R65.10 - Systemic inflammatory response syndrome (SIRS) of non-infectious origin without acute organ dysfunction Status: Acute (3) Focal seizures: Code(s): R56.9 - Unspecified convulsions Status: Acute (4) Hyponatremia: Code(s): E87.1 - Hypo-osmolality and hyponatremia Status: Acute (5) Depression with anxiety: Code(s): F41.8 - Other specified anxiety disorders Status: Acute (6) Hypertension: Code(s): I10 - Essential (primary) hypertension Status: Acute (7) Hypothyroidism: Code(s): E03.9 - Hypothyroidism, unspecified Status: Acute (8) Anemia: Code(s): D64.9 - Anemia, unspecified Status: Acute Plan Altered mental status likely secondary to polypharmacy versus hyponatremia. Ammonia, salicylates, acetaminophen, and ethyl alcohol levels were undetectable. She did have a low-grade temperature on arrival however her WBC count is normal as is her CRP. ABG is also unremarkable. Chest x-ray, CT of the abdomen and pelvis, and urinalysis did not show any evidence to suggest underlying infection. CVA is a consideration however brain CT did not show any acute findings. She did have low sodium on the labs. Started on on salt tablets with slow improvement she was on hydrochlorothiazide at home which is held. Blood cultures have been obtained to rule out bacteremia and remains negative. Initially held benztropine, clonazepam, trazodone, triptan, pregabalin, risperidone, and sertraline for now. Her symptoms are likely secondary to polypharmacy. Neurology consulted. EEG is normal. Her benztropine clonazepam Lyrica risperidone sertraline and trazodone has been restarted. MRI brain with chronic encephalomalacia. Mild to moderate chronic microvascular ischemic change in periventricular white matter. Postoperative changes in right temporoparietal region with overlying craniotomy changes. There is probable subcentimeter meningioma as. No other mass lesions are identified. No acute findings of any intracranial ischemia or bleeding. She most likely have underlying dementia with possible acute on chronic process Keppra level pending She has a history of meningioma and had a gamma knife radiation therapy in the past she recently had 1 again with recurrence of meningioma. She will continue to follow-up with her radiation oncology for monitoring of these meningiomas. Awaiting insurance authorization for rehab placement Subjective Date/time seen: 03/13/23 14:13 Interval history: Patient feels like she is back to her baseline. She is going for an MRI today. Vital stable labs were reviewed. Hyponatremia has improved and stable. TSH is 0.407 chest x-ray normal. Head CT with no acute intracranial process. Small area of chronic encephalopathy LAC and the right frontoparietal region with overlying craniotomy. Age-related changes including mild diffuse volume loss and mild scattered white matter hypoattenuation consistent with chronic small- vessel ischemic disease. CT abdomen with no acute intra abdominal pelvic process. Fat containing small infraumbilical and tiny umbilical hernias. Patulous distal esophagus likely related to esophageal dysmotility. MRI brain with probable subcentimeter meningiomas no other mass lesion identified. Mild to moderate chronic microv
[2023-03-13] MEDS: risperiDONE 1 MG TABLET PO (20:12)
[2023-03-13] MEDS: traZODone HCL 50 MG TABLET PO (20:13)
[2023-03-13] MEDS: MONTELUKAST SODIUM 10 MG TABLET PO (20:13)
[2023-03-14] VITALS (7 sets, daily range): BP systolic 116–142; BP diastolic 58–87; PULSE 69–87; RESP 16–18; TEMP 35.8–36.5; O2SAT 99–100
[2023-03-14] MEDS: PREGABALIN (*CRX) 50 MG CAPSULE 100 MG PO ×3 (05:15→22:38)
[2023-03-14 05:35] LABS: Basophils Absolute Auto 0.1 K/mm3 (0.0-0.1); Basophils Percent Auto 0.9 % (0.2-1.2); Eosinophils Absolute Auto 0.2 K/mm3 (0-0.3); Eosinophils Percent Auto 2.4 % (0-4.4); Hematocrit 27.9 % (37.0-47.0); Hemoglobin 8.9 g/dL (12.0-15.0); Immature Granulocyte Absolute 0.02 K/mm3 (0.00-0.031); Immature Granulocyte Percent A 0.3 % (0-0.5); Lymphocytes Absolute Auto 1.39 K/mm3 (0.9-3.2); Lymphocytes Percent Auto 21.3 % (18.3-44.2); Mean Corpuscular HGB Conc 31.9 g/dl (32-36); Mean Corpuscular Hemoglobin 30.2 pg (26-34); Mean Corpuscular Volume 94.6 fl (80-100); Mean Platelet Volume 8.5 fl (7.4-10.4); Monocytes Absolute Auto 0.6 K/mm3 (0.1-0.6); Monocytes Percent Auto 9.3 % (2.6-8.5); Neutrophils Absolute Auto 4.3 K/mm3 (1.3-6.7); Neutrophils Percent Auto 65.8 % (45.5-73.1); Platelet Count Result 253 k/mm3 (150-375); Red Blood Count 2.95 M/mm3 (4.2-5.4); Red Cell Distribution Width 14.9 % (11.5-14.5); White Blood Count 6.5 K/mm3 (4.5-10.0)
[2023-03-14 05:51] LABS: Anion Gap 5 mmol/L (8-16); Blood Urea Nitrogen 22 mg/dL (7-17); Calcium 8.5 mg/dL (8.4-10.2); Carbon Dioxide 29 mmol/L (22-30); Chloride 101 mmol/L (98-107); Estimated CRCL calculation 75 ml/min; Estimated Glomerular Filt Rate > 60; Glucose 106 mg/dL (65-110); Potassium 3.6 mmol/L (3.4-5.0); Sodium 135 mmol/L (137-145)
[2023-03-14] MEDS: clonazePAM (*CRX) 0.5 MG TABLET PO ×2 (08:42→20:26)
[2023-03-14] MEDS: levETIRAcetam 500 MG TABLET 1000 MG PO ×2 (08:42→20:26)
[2023-03-14] MEDS: SODIUM CHLORIDE 1 GM TABLET PO (08:42)
[2023-03-14] MEDS: BENZTROPINE MESYLATE 0.5 MG TABLET PO (08:42)
[2023-03-14] MEDS: ACETAMINOPHEN 325 MG TABLET 650 MG PO (08:42)
[2023-03-14] MEDS: SERTRALINE HCL 25 MG TABLET PO (08:42)
[2023-03-14] MEDS: lisinopriL 20 MG TABLET PO (08:42)
[2023-03-14] MEDS: carvediloL 6.25 MG TABLET PO ×2 (08:42→20:27)
[2023-03-14] MEDS: ATORVASTATIN 20 MG TABLET PO (08:42)
--- NOTE | 2023-03-14 13:13 | PM.IMPN ---
Progress Note: A&P Assessment and Plan (1) Altered mental status: Qualifiers: Altered mental status type: unspecified Qualified Code(s): R41.82 - Altered mental status, unspecified Code(s): R41.82 - Altered mental status, unspecified Status: Acute (2) Systemic inflammatory response syndrome: Code(s): R65.10 - Systemic inflammatory response syndrome (SIRS) of non-infectious origin without acute organ dysfunction Status: Acute (3) Focal seizures: Code(s): R56.9 - Unspecified convulsions Status: Acute (4) Hyponatremia: Code(s): E87.1 - Hypo-osmolality and hyponatremia Status: Acute (5) Depression with anxiety: Code(s): F41.8 - Other specified anxiety disorders Status: Acute (6) Hypertension: Code(s): I10 - Essential (primary) hypertension Status: Acute (7) Hypothyroidism: Code(s): E03.9 - Hypothyroidism, unspecified Status: Acute (8) Anemia: Code(s): D64.9 - Anemia, unspecified Status: Acute Plan Altered mental status likely secondary to polypharmacy versus hyponatremia. Ammonia, salicylates, acetaminophen, and ethyl alcohol levels were undetectable. She did have a low-grade temperature on arrival however her WBC count is normal as is her CRP. ABG is also unremarkable. Chest x-ray, CT of the abdomen and pelvis, and urinalysis did not show any evidence to suggest underlying infection. CVA is a consideration however brain CT did not show any acute findings. She did have low sodium on the labs. Started on on salt tablets with slow improvement she was on hydrochlorothiazide at home which is held. Blood cultures have been obtained to rule out bacteremia and remains negative. Initially held benztropine, clonazepam, trazodone, triptan, pregabalin, risperidone, and sertraline for now. Her symptoms are likely secondary to polypharmacy. Neurology consulted. EEG is normal. Her benztropine clonazepam Lyrica risperidone sertraline and trazodone has been restarted. MRI brain with chronic encephalomalacia. Mild to moderate chronic microvascular ischemic change in periventricular white matter. Postoperative changes in right temporoparietal region with overlying craniotomy changes. There is probable subcentimeter meningioma as. No other mass lesions are identified. No acute findings of any intracranial ischemia or bleeding. She most likely have underlying dementia with possible acute on chronic process Keppra level pending She has a history of meningioma and had a gamma knife radiation therapy in the past she recently had 1 again with recurrence of meningioma. She will continue to follow-up with her radiation oncology for monitoring of these meningiomas. Awaiting insurance authorization for rehab placement Lower sodium tablets Subjective Date/time seen: 03/14/23 13:13 Interval history: Patient feels like she is back to her baseline. She is going for an MRI today. Vital stable labs were reviewed. Hyponatremia has improved and stable. TSH is 0.407 chest x-ray normal. Head CT with no acute intracranial process. Small area of chronic encephalopathy LAC and the right frontoparietal region with overlying craniotomy. Age-related changes including mild diffuse volume loss and mild scattered white matter hypoattenuation consistent with chronic small-vessel ischemic disease. CT abdomen with no acute intra abdominal pelvic process. Fat containing small infraumbilical and tiny umbilical hernias. Patulous distal esophagus likely related to esophageal dysmotility. MRI brain with probable subcentimeter meningiomas no other mass lesion identified. Mild to moderate chronic microvascular ischemic change in periventricular white matter. Probably postoperative hyperintense FLAIR signal in the right temporoparietal region with overlying craniotomy changes. 03/13/2023: No overnight events. Migraine attack this. Awaiting insurance authorization f
[2023-03-14] MEDS: hydrOXYzine HCL 25 MG TABLET PO (17:10)
[2023-03-14] MEDS: SODIUM CHLORIDE 500 MG TABLET PO (17:10)
[2023-03-14] MEDS: risperiDONE 1 MG TABLET PO (20:26)
[2023-03-14] MEDS: traZODone HCL 50 MG TABLET PO (20:27)
[2023-03-14] MEDS: MONTELUKAST SODIUM 10 MG TABLET PO (20:27)
[2023-03-15 05:07] VITALS: BP 130/43; PULSE 91; RESP 16; TEMP 35.8; O2SAT 95
[2023-03-15] MEDS: PREGABALIN (*CRX) 50 MG CAPSULE 100 MG PO ×2 (06:27→14:22)
[2023-03-15 06:36] LABS: Basophils Absolute Auto 0.1 K/mm3 (0.0-0.1); Basophils Percent Auto 0.7 % (0.2-1.2); Eosinophils Absolute Auto 0.2 K/mm3 (0-0.3); Eosinophils Percent Auto 2.5 % (0-4.4); Hematocrit 24.9 % (37.0-47.0); Immature Granulocyte Absolute 0.02 K/mm3 (0.00-0.031); Immature Granulocyte Percent A 0.2 % (0-0.5); Lymphocytes Absolute Auto 1.63 K/mm3 (0.9-3.2); Lymphocytes Percent Auto 20.2 % (18.3-44.2); Mean Corpuscular HGB Conc 32.1 g/dl (32-36); Mean Corpuscular Hemoglobin 30.2 pg (26-34); Mean Platelet Volume 8.6 fl (7.4-10.4); Monocytes Absolute Auto 0.7 K/mm3 (0.1-0.6); Monocytes Percent Auto 9.2 % (2.6-8.5); Neutrophils Absolute Auto 5.4 K/mm3 (1.3-6.7); Neutrophils Percent Auto 67.2 % (45.5-73.1); Platelet Count Result 246 k/mm3 (150-375); Red Blood Count 2.65 M/mm3 (4.2-5.4); Red Cell Distribution Width 14.8 % (11.5-14.5); White Blood Count 8.1 K/mm3 (4.5-10.0)
[2023-03-15 06:45] LABS: Alanine Aminotransferase 15 U/L (6-35); Albumin Level 2.8 g/dL (3.5-5.1); Alkaline Phosphatase 74 U/L (38-126); Anion Gap 1 mmol/L (8-16); Aspartate Amino Transferase 18 U/L (14-36); Bilirubin,Total 0.3 mg/dL (0.2-1.3); Blood Urea Nitrogen 22 mg/dL (7-17); Calcium 8.2 mg/dL (8.4-10.2); Carbon Dioxide 29 mmol/L (22-30); Chloride 102 mmol/L (98-107); Estimated CRCL calculation 75 ml/min; Estimated Glomerular Filt Rate > 60; Glucose 84 mg/dL (65-110); Magnesium 1.8 mg/dL (1.6-2.3); Potassium 3.7 mmol/L (3.4-5.0); Sodium 132 mmol/L (137-145)
[2023-03-15] MEDS: SODIUM CHLORIDE 500 MG TABLET PO (08:32)
[2023-03-15] MEDS: ACETAMINOPHEN 325 MG TABLET 650 MG PO (08:32)
[2023-03-15 08:33] VITALS: PULSE 83
[2023-03-15] MEDS: carvediloL 6.25 MG TABLET PO (08:33)
[2023-03-15] MEDS: lisinopriL 20 MG TABLET PO (08:33)
[2023-03-15] MEDS: clonazePAM (*CRX) 0.5 MG TABLET PO (08:33)
[2023-03-15] MEDS: ATORVASTATIN 20 MG TABLET PO (08:33)
[2023-03-15] MEDS: levETIRAcetam 500 MG TABLET 1000 MG PO (08:33)
[2023-03-15] MEDS: SERTRALINE HCL 25 MG TABLET PO (08:33)
[2023-03-15] MEDS: BENZTROPINE MESYLATE 0.5 MG TABLET PO (08:33)
--- NOTE | 2023-03-15 11:42 | PM.DS ---
DS: Admitting Diagnosis Discharge Date 03/15/2023 Admitting Diagnosis Altered mental status DS: Discharge Diagnosis Discharge Diagnosis (1) Altered mental status: Qualifiers: Altered mental status type: unspecified Qualified Code(s): R41.82 - Altered mental status, unspecified Code(s): R41.82 - Altered mental status, unspecified Status: Acute (2) Systemic inflammatory response syndrome: Code(s): R65.10 - Systemic inflammatory response syndrome (SIRS) of non-infectious origin without acute organ dysfunction Status: Acute (3) Focal seizures: Code(s): R56.9 - Unspecified convulsions Status: Acute (4) Hyponatremia: Code(s): E87.1 - Hypo-osmolality and hyponatremia Status: Acute (5) Depression with anxiety: Code(s): F41.8 - Other specified anxiety disorders Status: Acute (6) Hypertension: Code(s): I10 - Essential (primary) hypertension Status: Acute (7) Hypothyroidism: Code(s): E03.9 - Hypothyroidism, unspecified Status: Acute (8) Anemia: Code(s): D64.9 - Anemia, unspecified Status: Acute DS: Summary Hospital Course Hospital Course: Altered mental status likely secondary to polypharmacy versus hyponatremia.? Ammonia, salicylates, acetaminophen, and ethyl alcohol levels were undetectable.? She did have a low-grade temperature on arrival however her WBC count is normal as is her CRP. ABG is also unremarkable. Chest x-ray, CT of the abdomen and pelvis, and urinalysis did not show any evidence to suggest underlying infection. CVA is a consideration however brain CT did not show any acute findings.? She did have low sodium on the labs.? Started on on salt tablets with slow improvement she was on hydrochlorothiazide at home which is held.? Blood cultures have been obtained to rule out bacteremia and remains negative.? Initially held benztropine, clonazepam, trazodone, triptan, pregabalin, risperidone, and sertraline for now.? Her symptoms are likely secondary to polypharmacy versus hydrochlorothiazide.? Neurology consulted.? EEG is normal.? Her benztropine clonazepam Lyrica risperidone sertraline and trazodone has been restarted.? MRI brain with chronic encephalomalacia.? Mild to moderate chronic microvascular ischemic change in periventricular white matter.? Postoperative changes in right temporoparietal region with overlying craniotomy changes.? There is probable subcentimeter meningioma as.? No other mass lesions are identified.? No acute findings of any intracranial ischemia or bleeding.? She most likely have underlying dementia with possible acute on chronic process Keppra level pending given at time of discharge. She has a history of meningioma and had a gamma knife radiation therapy in the past she recently had 1 again with recurrence of meningioma.? She will continue to follow-up with her radiation oncology for monitoring of these meningiomas. Continue on fluid restriction and salt tablets. Follow-up labs in 1 week [facility] Time Spent with Patient Time attestation: Total time spent providing and/or coordinating discharge services: 45 minutes Exam Narrative: General: Moderately ill-appearing female sitting up in bed. Not in acute distress HEENT: Normocephalic, atraumatic. Wearing corrective lenses. PERRL, EOMI. Sclera anicteric. Neck: Supple. Respiratory: Respirations are nonlabored and lungs are clear to auscultation bilaterally. Cardiovascular: Tachycardic with normal S1-S2. Monitor shows sinus tachycardia. Gastrointestinal: Abdomen is soft, nontender, and nondistended with positive bowel sounds. Skin: Warm and dry. Extremities: No cyanosis, clubbing, or edema. Radial and pedal pulses intact. Neurological: alert and oriented, Cranial nerves 2-12 are grossly intact. Speech is clear but she is slow to process and answer questions. Psychiatric: cooperative.
[2023-03-15 14:00] VITALS: BP 121/50; PULSE 93; RESP 14; TEMP 36.7; O2SAT 96
[2023-03-15 15:02] LABS: SARS-CoV-2 RNA PCR Negative (Negative)
[2023-03-15 19:54] LABS: Levetiracetam Keppra 21.5 mcg/mL (6.0-46.0)
== END 2023-03-15 15:40 | DRG 641 ==
LOC: ANHED 13:46 → ANH3MEDSUR 15:07
PROVIDERS: Hospitalist; Physician Assistant; Psychiatry & Neurology Neurology; Admitting Provider Family Medicine; Emergency Provider Preventive Medicine Aerospace Medicine; PCP Nurse Practitioner Family; Visit Provider Internal Medicine
DX: E87.1 Hypo-osmolality and hyponatremia (principal); G40.89 Other seizures; R65.10 Systemic inflammatory response syndrome (SIRS) of non-infectious origin without acute organ dysfunction; F01.A4 Vascular dementia, mild, with anxiety; R41.82 Altered mental status, unspecified; T50.915A Adverse effect of multiple unspecified drugs, medicaments and biological substances, initial encounter; I10 Essential (primary) hypertension; I34.1 Nonrheumatic mitral (valve) prolapse; I25.10 Atherosclerotic heart disease of native coronary artery without angina pectoris; D64.9 Anemia, unspecified; J45.909 Unspecified asthma, uncomplicated; E03.9 Hypothyroidism, unspecified; E78.5 Hyperlipidemia, unspecified; K21.9 Gastro-esophageal reflux disease without esophagitis; G93.89 Other specified disorders of brain; F31.9 Bipolar disorder, unspecified; Z20.822 Contact with and (suspected) exposure to COVID-19
CPT/HCPCS: 36415; 36600; 70450; 70553; 71045; 74177; 80048; 80053; 80177; 80307; 81001; 82140; 82375; 82570; 82607; 82728; 82746; 82805; 82948; 83050; 83540; 83550; 83605; 83735; 83930; 83935; 84145; 84295; 84300; 84439; 84443; 84540; 85025; 85380; 85610; 85730; 86140; 87040; 87635; 87636; 93005; 95816; 96361; 96365; 96367; 96375; 97110; 97161; 97165; 97530; 97535; 99285; A9270; A9577; G0378; J0456; J0696; J2405; J3475; J7030; Q9967